=== PATIENT | female | born 1945 | race Caucasian/White ===

== ENCOUNTER 2020-05-04 16:22 | Outpatient (RCR) | payer MEDICARE | END 2020-05-17 | disposition home or self-care (01) | LOC: WCC 16:22 | DX: T22.231A Burn of second degree of right upper arm, initial encounter (principal); T22.331A Burn of third degree of right upper arm, initial encounter; X58.XXXA Exposure to other specified factors, initial encounter; Y92.9 Unspecified place or not applicable; I10 Essential (primary) hypertension | CPT/HCPCS: 11042; 11045 ==